=== PATIENT | female | born 1995 | race Caucasian/White ===

== ENCOUNTER 2017-02-20 12:49 | Emergency (ER) | payer OTHER ==
[2017-02-20] MEDS ORDERED: 0.9 % SODIUM CHLORIDE 1,000 ML IV ONE (12:51)
[2017-02-20 13:06] LABS: BASOPHILS % 0.3 (0.0-1.5); MEAN CORPUSCULAR HEMOGLOBIN 31.6 pg (28.0-34.0); MEAN CORPUSCULAR VOLUME 93.4 fl (80.0-100.0); MONOCYTES % 5.6 % (0.0-11.0); NEUTROPHILS # 9.4 # k/uL (1.4-7.7)
[2017-02-20 13:19] LABS: eGFR (African) > 60; eGFR (Non-African) > 60
--- NOTE | 2017-02-20 14:02 | ED Physician Documentation ---
General Adult - HISTORIAN Historian: patient - HPI Stated Complaint: lightheaded Chief Complaint: General Adult Further Comments: yes (21 year old female brought in by EMS after becoming light headed and dizzy at work. Patient states she did not eat breakfast this morning, patient states she got dizzy on the way to lunch, states she ate a foot long sandwich at lunch. Became dizzy after eating. EMS was called. Blood sugar was 117 on site by EMS. Patient is 34 weeks . Reports she was seen by OB last , has appointment next . G1, P 0 Patient denies vaginal discharge or bleeding, denies constractions, denies headache or urinary frequency.) - ROS CONST: no problems EYES/ENT: none CVS/RESP: none GI/: none MS/SKIN/LYMPH: none NEURO/PSYCH: denies: headache - PAST HX Past History: none Other History: none Surgeries/Procedures: none Allergies/Adverse Reactions: Allergies Allergy/AdvReac Type Severity Reaction Status Date / Time No Known Allergies Allergy Verified 02/20/17 13:27 Home Medications: Ambulatory Orders Medication Instructions Recorded Pnv95/Ferrous Fumarate/FA 1 tab PO DAILY 02/20/17 [ [place]] - SOCIAL HX Smoking History: non-smoker - FAMILY HX Family History: No - VITAL SIGNS Vital Signs: Vital Signs Temp Pulse Resp BP Pulse Ox 98.1 F 108 H 20 107/76 98 02/20/17 12:50 02/20/17 12:50 02/20/17 12:50 02/20/17 12:50 02/20/17 12:50 - REVIEWED ASSESSMENTS Nursing Assessment Reviewed: Yes Vitals Reviewed: Yes Progress - Progress Progress: 1350 Up walking in ER, tolerated well. 1L NS given, ate regular lunch tray. [facility] ED Results Lab/Radiology - Lab Results Lab Results: Lab Results 02/20/17 02/20/17 02/20/17 13:20 13:00 13:00 WBC 11.70 K/ul K/ul (4.00-12.00) RBC 3.84 M/ul L M/ul (3.90-5.20) Hgb 12.1 g/dL g/dL (12.0-16.0) Hct 35.8 % % (34.5-46.5) MCV 93.4 fl fl (80.0-100.0) MCH 31.6 pg pg (28.0-34.0) MCHC 33.8 g/dL g/dL (30.0-36.0) RDW 13.3 % % (11.3-14.3) Plt Count 388 K/mm3 K/mm3 (130-400) Neut % (Auto) 79.8 % H % (39.0-79.0) Lymph % (Auto) 12.4 % L % (16.0-50.0) Norman % (Auto) 5.6 % % (0.0-11.0) Eos % (Auto) 1.0 % % (0.0-6.8) Baso % (Auto) 0.3 (0.0-1.5) Neut # (Auto) 9.4 # k/uL H # k/uL (1.4-7.7) Lymph # (Auto) 1.4 # k/uL # k/uL (0.6-4.0) Norman # (Auto) 0.7 # k/uL # k/uL (0.0-0.9) Eos # (Auto) 0.1 # k/uL # k/uL (0.0-0.6) Baso # (Auto) 0.0 # k/uL # k/uL (0.0-0.5) Reactive Lymphs % 0.9 % % (0.0-5.0) Reactive Lymphs # 0.1 # k/uL # k/uL (0.0-0.8) Sodium 133 mmol/L L mmol/L (136-145) Potassium 3.1 mmol/L L mmol/L (3.5-5.1) Chloride 103 mmol/L mmol/L (98-107) Carbon Dioxide 24 mmol/L mmol/L (22-30) BUN 4 mg/dL L mg/dL (7-17) Creatinine 0.50 mg/dL L mg/dL (0.52-1.04) Est GFR ( Amer) > 60 (60 - ) Est GFR (Non-Af Amer) > 60 (60 - ) Glucose 98 mg/dL mg/dL (74-106) Calcium 9.3 mg/dL mg/dL (8.4-10.2) Total Bilirubin 0.2 mg/dL mg/dL (0.2-1.3) AST 21 U/L U/L (15-46) ALT 36 U/L U/L (13-69) Alkaline Phosphatase 94 U/L U/L (38-126) Total Protein 6.7 g/dL g/dL (6.3-8.2) Albumin 3.3 g/dL L g/dL (3.5-5.0) Influenza A (Rapid) Negative (NEGATIVE) Influenza B (Rapid) Negative (NEGATIVE) Group A Strep Screen Negative (NEGATIVE) - Orders Orders: ED Orders Category Date Time Status Place IV Lock 1T Care 02/20/17 12:51 Active CBC/PLATELET/DIFF Stat Lab 02/20/17 13:00 Completed CMP Stat Lab 02/20/17 13:00 Completed GRP A STREP SCREEN Stat Lab 02/20/17 13:20 Completed INFLUENZA A&B Stat Lab 02/20/17 13:20 Completed THROAT CULTURE Stat Lab 02/20/17 13:20 Received UA W/MICRO IF INDICATED Stat Lab 02/20/17 12:51 Ordered 0.9 % Sodium Chloride [Normal Saline] 1,000 ml Med 02/20/17 12:51 Discontinued IV NOW General Adult Physical Exam - PHYSICAL EXAM GENERAL APPEARANCE: mild distress (anxious) EENT: eye inspection normal, ENT inspection normal, pharynx normal, no signs of dehydration, BARON, no nystagmus, TM's nml RESPIRATORY: no resp distress, chest non-tender, breath sounds normal CVS: reg rate & rhythm, heart sounds normal, equal pulses, no murmur, no gallop , PMI nml, no JVD, no friction rub, 24 ABDOMEN: soft, no organomegaly, normal bowel sounds, no abdominal bruit, no distension, other ( abd - FHT 140-145 by Ultrasound) BACK: normal inspection, no CVA tenderness SKIN: normal color, warm/dry, NR, INT, PAL, DR EXTREMITIES: non-tender, normal range of motion, no evidence of injury, no edema , J, ELDER COUNSELOR NEURO: oriented X3, CN's nml as tested, motor nml, sensation nml, mood/affect nml Discharge Clincal Impression: Dizziness Qualifiers: Weeks of gestation: 34 weeks Qualified Code(s): Z3A.34 - 34 weeks gestation of Referrals: Primary Doctor,No [Primary Care Provider] - 2 Days Additional Instructions: Eat first thing in the morning, do not skip meals. If your symptoms return, [facility] your [facility] doctor or return to the ER. Condition: Stable Disposition: 01 HOME, SELF-CARE Decision to Admit: NO Decision Time: 14:37
[2017-02-20 15:05] VITALS: BP 117/68
== END 2017-02-20 14:45 | disposition home or self-care (01) ==
LOC: ED 12:49
DX: R42 Dizziness and giddiness (principal); Z3A.34 34 weeks gestation of pregnancy
CPT/HCPCS: 80053; 85025; 87070; 87400; 87880; J7030; 96360; 99283; S1016